=== PATIENT | female | born 1965 | race Caucasian/White ===

== ENCOUNTER 2017-01-08 09:12 | Emergency (ER) | payer BC, OTHER ==
[~2017-01-08] VITALS: Ht 162.6 cm; Wt 68.5 kg
[2017-01-08 09:31] VITALS: Ht 162.6 cm; Wt 68.5 kg
[2017-01-08] MEDS ORDERED: KETOROLAC 60 MG INJ IM STA (10:22)
[2017-01-08] MEDS ORDERED: HYDROCODONE/APAP (5/325) TAB PO ONE (10:30)
--- NOTE | 2017-01-08 12:00 | RADRPT ---
PROCEDURE: XR Cervical Spine. CLINICAL INDICATION: Neck pain. TECHNIQUE: AP, lateral, and odontoid views of the cervical spine were performed. COMPARISON: There are no similar studies submitted for comparison. FINDINGS: LORDOSIS: There is straightening of the normal cervical lordosis. VERTEBRAL BODY HEIGHTS: Maintained. ALLIGNMENT: There is minimal retrolisthesis of C4-C5. OSSEOUS STRUCTURES: There is no destructive osseous lesion.No acute fracture is identified. DISCS: There is severe disk space narrowing at C4-C5 with posterior osteophytic spurring which may c ause spinal canal stenosis. DENS: Intact. SOFT TISSUE: There is no prevertebral soft tissue swelling. IMPRESSION: No fracture or subluxation. C4-C5 severe disk space narrowing with minimal retrolisthesis and posterior osteophytic spurring whi ch may cause spinal canal stenosis. Noncontrast MRI of the cervical spine may be performed as clini audrey warranted. Straightening of the normal cervical lordosis. Further findings as detailed above. RPTAT: AA .Kb Marroquin MD, Date Time Electronically viewed and signed by .Kb Marroquin MD, on 01/08/2017 12:00 .F/
[2017-01-08] MEDS ORDERED: PRED20TA PO (12:03)
[2017-01-08] MEDS ORDERED: HYDR-906 PO (12:03)
--- NOTE | 2017-01-08 12:08 | ERD ---
ER Documentation Chief Complaint Date/Time DATE: 01/08/17 TIME: 12:05 Chief Complaint RIGHT ARM PAIN X 1DAY, DENIES INJURY HPI This 51-year-old female complains of pain in her right arm for last day. Radiates from her neck down to her hand and is worse in the index and middle finger. She has some slight paresthesias but denies any weakness. She denies any inciting event such sleeping, or awkward movement and denies any history of neck injury. She denies any fevers, vomiting, bowel or bladder incontinence, additional symptoms ROS All systems reviewed and are negative except as per history of present illness. Medications Home Meds Active Scripts Prednisone* (Prednisone*) 20 Mg Tab, 40 MG PO DAILY for 5 Days, TAB Prov:MADELEINE NOONAN MD 01/08/17 Hydrocodone/Acetaminophen ([place] 5-325 Tablet) 1 Each Tablet, 1 TAB PO Q6H Y for PAIN, #15 TAB Prov:MADELEINE NOONAN MD 01/08/17 Allergies Allergies: Coded Allergies: No Known Allergy (Unverified , 01/08/17) PMhx/Soc Medical and Surgical Hx: pt denies Medical Hx, pt denies Surgical Hx Hx Alcohol Use: No Hx Substance Use: No Hx Tobacco Use: No Smoking Status: Never smoker Physical Exam Vitals Vital Signs Date Time Temp Pulse Resp B/P Pulse Ox O2 Delivery O2 Flow Rate FiO2 01/08/17 09:31 96.9 80 18 103/75 99 Physical Exam Const: [] Alert, [id number]. Head: Atraumatic Eyes: Normal Conjunctiva ENT: Normal External Ears, Nose and Mouth. Neck: Full range of motion..~ No meningismus. There is some tenderness in the right cervical paraspinous muscles without midline tenderness or deformities. Resp: Clear to auscultation bilaterally Cardio: Regular rate and rhythm, no murmurs Abd: Soft, non tender, non distended. Normal bowel sounds Skin: No petechiae or rashes Back: No midline or flank tenderness Ext: No cyanosis, or edema patient has guarding of the right upper extremity and generalized tenderness extending from the right trapezius down the right arm symptoms localized to the C4-C5 area distribution. Neur: Awake and alert. Amatory without focal weakness or deficits. Psych: Normal Mood and Affect Results 24 hrs Current Medications Medications (Trade) Dose Ordered Sig/Trisha Route PRN Reason Start Time Stop Time Status Last Admin Dose Admin Ketorolac Tromethamine (Toradol) 60 mg ONCE STAT IM 01/08/17 10:22 01/08/17 10:25 DC 01/08/17 10:36 Acetaminophen/ Hydrocodone Bitart ([place] (5/325)) 1 tab ONCE ONCE PO 01/08/17 10:30 01/08/17 10:31 DC 01/08/17 10:36 Procedures/MDM X-ray C spine 3V Interpreted by me: Bones: [No fracture] Joints: No dislocation Foreign body: None. Impression-degenerative changes of C4-C5 with severe disc space narrowing. Patient was given Toradol 60 mg IM and Marceline 5 mg of mouth. Patient signs and symptoms of cervical radicular pain. Patient shows no signs or symptoms of myelopathy, cauda equina syndrome, epidural abscess, bacterial infection, other emergent causes requiring further intervention for presenting symptoms. She will discharged on a short course of prednisone, and Marceline instructions to continue NSAIDs and instructed to follow-up with primary doctor for further evaluation referral. Patient may need orthopedist or neurosurgeon for this study for persistent symptoms. She should return for fevers, new worsening symptoms as directed and aftercare instructions. Departure Diagnosis: Primary Impression: Cervical radicular pain Condition: Stable Patient Instructions: Radiculopathy, Cervical Referrals: [facility] Hours: Mon-Fri 9:00 AM - 5:00 PM Additional Instructions: X-ray confirms likely disc as cause of symptoms. Recommend further evaluation treatment with specialist-orthopedic or neurosurgeon for persistent symptoms. May need further studies such as MRI and further treatment such as physical therapy and referral. Recheck otherwise for new or worsening symptoms. MADELEINE NOONAN MD Jan 08, 2017 12:08
[2017-01-08 12:36] VITALS: BP 110/72; PULSE 77; RESP 18; TEMP 97.2
== END 2017-01-08 12:38 | disposition home or self-care (01) ==
LOC: FTE 09:12
DX: M54.12 Radiculopathy, cervical region (principal)
CPT/HCPCS: 72040; 96372; J1885; Z7502; Z7610

== ENCOUNTER 2017-01-25 22:00 | Emergency (ER) | payer SELFPAY ==
[~2017-01-25] VITALS: Ht 152.4 cm; Wt 69.0 kg
[~2017-01-25 22:00] MED LIST: HYDR-906 PO; PRED20TA PO
[2017-01-25 22:08] VITALS: Ht 152.4 cm; Wt 69.0 kg
[2017-01-25] MEDS ORDERED: IBUPROFEN 800 MG TAB PO ONE (23:00)
[2017-01-25] MEDS ORDERED: IBUP-1542 PO (23:51)
[2017-01-25] MEDS ORDERED: HYDR-902 PO (23:51)
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
[2017-01-26 01:53] VITALS: BP 117/66; PULSE 68; RESP 18; TEMP 97.5
== END 2017-01-26 01:53 | disposition home or self-care (01) ==
LOC: FTE 22:00
DX: M54.2 Cervicalgia (principal); M54.5 Low back pain; M79.604 Pain in right leg; R10.9 Unspecified abdominal pain; Z04.1 Encounter for examination and observation following transport accident
CPT/HCPCS: 74176